=== PATIENT | female | born 1965 | race Caucasian/White ===

== ENCOUNTER 2018-05-16 09:33 | Emergency (ER) | payer BC ==
[2018-05-16 10:00] VITALS: BP 118/70
[2018-05-16] MEDS ORDERED: Fluorescein Sod TOPICAL 0.6* 0.6 MG TEST OPHTHALMIC ONE ×2 (10:49→10:51)
--- NOTE | 2018-05-16 10:56 | UC ---
Eye Complaint HPI - HPI Summary HPI Summary: pt is c/o her L eye burning, itching, sealed shut and light sensitive x2 days with worsening. no injury or URI. no contact use. - History of Current Complaint Chief Complaint: UCEye Stated Complaint: EYE COMPLAINT Time Seen by Provider: 05/16/18 10:47 Hx Obtained From: Patient Onset/Duration: Gradual Onset Timing: Constant Pain Intensity: 5 Aggravating Factor(s): Light Alleviating Factor(s): Nothing Associated Signs And Symptoms: Positive: Photophobia, Drainage (Clear). Negative: Drainage (Purulent), Fever, Swelling - Risk Factors Penetrating Injury Risk Factor: Negative Globe Rupture Risk Factors: Negative - Allergies/Home Medications Allergies/Adverse Reactions: Allergies Allergy/AdvReac Type Severity Reaction Status Date / Time morphine Allergy Hives Verified 05/16/18 09:55 tapentadol [From Nucynta] Allergy Hallucinati Verified 05/16/18 09:55 ons Home Medications: Home Medications Chlorthalidone TAB* [Hygroton TAB*] 12.5 mg PO DAILY 05/16/18 [History Confirmed 05/16/18] Losartan Potassium [Cozaar] 100 powder PO DAILY 05/16/18 [History Confirmed ] Montelukast Sodium TAB* [Singulair 10 MG TAB*] 10 mg PO DAILY 05/16/18 [History Confirmed 05/16/18] Polyvinyl Alcohol [Artificial Tears] 1 drop OPHTHALMIC Q2H 05/16/18 [History Confirmed 05/16/18] celeCOXIB CAP* [Celebrex CAP*] 200 mg PO DAILY 05/16/18 [History Confirmed 05/16] PMH/Surg Hx/FS Hx/Imm Hx - Additional Past Medical History Additional PMH: oa, ALLERGIES Cardiovascular History: Hypertension - Surgical History Surgical History: Yes Surgery Procedure, Year, and Place: 1992- [facility]. 1999- . 1999- HYSTERECTOMY. BILATERAL HIP REPLACEMENT. - Family History Known Family History: Positive: None - Social History Occupation: Employed Full-time Lives: With Family Alcohol Use: None Substance Use Type: None Smoking Status (MU): Never Smoked Tobacco - Immunization History Vaccination Up to Date: Yes Review of Systems Constitutional: Negative Skin: Negative Eyes: Drainage - L, Eye Redness - L, Photophobia - L ENT: Negative Respiratory: Negative Cardiovascular: Negative Gastrointestinal: Negative Genitourinary: Negative Motor: Negative Neurovascular: Negative Musculoskeletal: Negative Neurological: Negative Psychological: Negative Is Patient Immunocompromised?: No All Other Systems Reviewed And Are Negative: Yes Physical Exam Triage Information Reviewed: Yes Appearance: Well-Appearing Vital Signs: Initial Vital Signs Temp 98.0 F 05/16/18 09:51 Pulse 70 05/16/18 09:51 Resp 17 05/16/18 09:51 BP 118/70 05/16/18 09:51 Pulse Ox 99 05/16/18 09:51 Vital Signs Reviewed: Yes Eyes: Positive: Other: - Visual acuity OS 20/40, OD 2024, both eyes 20/25. No periorbital edema, erythema or swelling. No pre-or postauricular adenopathy. Pupils are equal round reactive to light extraocular movements are intact and there are no exudates. Conjunctiva on the left is mildly injected. Upper and lower lids on left everted and no foreign body. Left eye stained and a small area of horizontal wispy uptake appreciated around 6:00 of the cornea and ? slight errosion to lower half. The rest of the eye is unremarkable. Anterior chambers clear as well. ENT: Positive: Pharynx normal, TMs normal. Negative: Nasal congestion, Nasal drainage Neck: Positive: Supple, Nontender, No Lymphadenopathy Respiratory: Positive: Lungs clear, Normal breath sounds Cardiovascular: Positive: RRR, No Murmur Abdomen Description: Positive: Nontender, No Organomegaly, Soft Bowel Sounds: Positive: Present Musculoskeletal: Positive: ROM Intact Neurological: Positive: Alert Psychological: Positive: Age Appropriate Behavior Skin Exam: Normal Eye Complaint Course/Dx - Course Course Of Treatment: Differential includes a dendrite, corneal ulcer and abrasion. Consult was placed to Dr. West, ophthalmology. We will treat with an oral antiviral specifically Valtrex and a topical antibiotic, Vigamox. Ophthalmology will call this patient Friday morning. If in the event she does not receive a call by 10 AM, she was instructed to call them. Patient also advised to call them sooner with any changes or worsening. - Differential Dx/Diagnosis Provider Diagnoses: photophobia OS, uptake stain OS, possible dendritic keratitis OS Discharge - Sign-Out/Discharge Documenting (check all that apply): Patient Departure - Discharge Plan Condition: Stable Disposition: HOME Prescriptions: Moxifloxacin 0.5% OPHTH(NF) [Vigamox 0.5% OPHTH(NF)] 1 drop LEFT EYE Q2HR #1 ophth.soln ValACYclovir (*) [Valtrex 1 GM(*)] 1 gm PO BID 7 Days #14 tab Patient Education Materials: Photophobia (ED), Keratitis (ED) Referrals: No Primary Care Phys,NOPCP [Primary Care Provider] - Betito HARPER,Liv [Medical Doctor] - 2 Days Additional Instructions: THE OFFICE OF DR WEST/BETITO WILL CALL YOU FRIDAY AM FOR FOLLOW UP (2DAYS). IF YOU DO NOT HEAR FROM THEM BY 10AM, GIVE THE OFFICE A CALL. CALL THEM SOONER FOR ANY WORSENING OR CHANGES. DIAGNOSIS: PHOTOPHOBIA LEFT EYE. UPTAKE STAIN LEFT EYE. POSSIBLE DENDRITIC KERATITIS - Billing Disposition and Condition Condition: STABLE Disposition: Home
== END 2018-05-16 11:41 | disposition home or self-care (01) ==
LOC: UCCORT 09:33
DX: H53.142 Visual discomfort, left eye (principal); Z88.6 Allergy status to analgesic agent; Z88.4 Allergy status to anesthetic agent; I10 Essential (primary) hypertension
CPT/HCPCS: 99202; G0463